=== PATIENT | female | born 1995 | race African-American/Black ===

== ENCOUNTER 2021-07-02 23:33 | Day surgery (SDC) | payer OTHER ==
[2021-07-02 23:39] VITALS: BMI 41.8
[2021-07-03] MEDS ORDERED: hydrALAZINE 20 MG/ML VIAL SLOW IVP PRN (00:33)
== END 2021-07-03 02:40 | disposition home or self-care (01) ==
LOC: CSHLD/OP 23:33
PROVIDERS: ATTEND Obstetrics & Gynecology
DX: O47.03 False labor before 37 completed weeks of gestation, third trimester (principal); O23.43 Unspecified infection of urinary tract in pregnancy, third trimester; N39.0 Urinary tract infection, site not specified; O23.593 Infection of other part of genital tract in pregnancy, third trimester; B96.89 Other specified bacterial agents as the cause of diseases classified elsewhere; O98.813 Other maternal infectious and parasitic diseases complicating pregnancy, third trimester; B37.9 Candidiasis, unspecified; Z3A.33 33 weeks gestation of pregnancy
CPT/HCPCS: 87480; 87510; 87660; 99284

== ENCOUNTER 2021-08-07 09:31 | Outpatient (CLI) | payer OTHER ==
[2021-08-07 23:17] LABS: SARS-CoV-2 PCR by NAA Not Detected (NotDetected)
== END 2021-08-07 09:32 | disposition home or self-care (01) ==
LOC: CSHLAB 09:31
PROVIDERS: ATTEND Family Medicine
DX: Z01.812 Encounter for preprocedural laboratory examination (principal); Z20.822 Contact with and (suspected) exposure to COVID-19
CPT/HCPCS: U0003; U0005

== ENCOUNTER 2021-08-10 10:12 | Inpatient (IN) | payer OTHER ==
[2021-08-10] MEDS ORDERED: Famotidine/PF 20 mg/2ml Vial SLOW IVP PRN (11:12)
[2021-08-10] MEDS ORDERED: Ondansetron PF 4 MG/2 ML Vial IVP PRN ×3 (11:12→16:32)
[2021-08-10] MEDS ORDERED: CEFAZOLIN 3 GM in Premix Bag 1 BAG IVPB SCH (11:12)
[2021-08-10] MEDS ORDERED: hydrALAZINE 20 MG/ML VIAL SLOW IVP PRN ×2 (11:12→16:32)
[2021-08-10] MEDS ORDERED: Bicitra 30 ML UDCUP PO PRN (11:12)
[2021-08-10] MEDS ORDERED: Promethazine HCl 25 MG/ML VIAL IM PRN ×3 (11:12→16:32)
[2021-08-10] MEDS ORDERED: Lactated Ringer's 1,000 ML IV SCH (11:12)
[2021-08-10 11:21] VITALS: BMI 42.0
[2021-08-10 11:32] LABS: Hemoglobin 9.4 g/dL (12.0-15.5); Mean Corpuscular HGB CONC 29.6 g/dL (32.0-36.0); Mean Corpuscular Hemoglobin 21.4 pg (27.0-33.0); Mean Corpuscular Volume 72.3 fl (81.6-98.3); Mean Platelet Volume 10.2 fl (7.4-10.4); Platelet Count 330 10x3/uL (150-450); RBC Distribution Width 17.2 % (11.5-14.5); White Blood Cell (WBC) Count 10.2 10x3/uL (3.5-10.5)
[2021-08-10] MEDS ORDERED: ePHEDrine Sulfate 50 MG/10 ML VIAL ONE (12:07)
[2021-08-10] MEDS ORDERED: Ketorolac Tromethamine 30 MG/ML VIAL ONE (12:07)
[2021-08-10] MEDS ORDERED: Oxytocin 10 UNITS/ML VIAL ONE ×2 (12:07→13:46)
[2021-08-10] MEDS ORDERED: Fentanyl 100 MCG/2 ML VIAL ONE (12:07)
[2021-08-10] MEDS ORDERED: Ondansetron PF 4 MG/2 ML Vial ONE (12:07)
[2021-08-10] MEDS ORDERED: Phenylephrine 40 MG/NS 250 ML 250 ML ONE (12:07)
[2021-08-10] MEDS ORDERED: PHENYLEPHRINE-NS 100 MCG/ML 10 ML SYRINGE ONE (12:07)
[2021-08-10] MEDS ORDERED: Morphine PF 10 MG/10 ML VIAL ONE (12:07)
[2021-08-10] MEDS ORDERED: Misoprostol 200 MCG TAB ONE (12:08)
[2021-08-10] MEDS ORDERED: Carboprost 250 MCG/ML AMP ONE (12:09)
[2021-08-10] MEDS ORDERED: Methylergonovine 0.2 MG/ML VIAL ONE (12:09)
[2021-08-10 12:10] LABS: Syphilis Antibody Nonreactive (Nonreactive); Syphilis Antibody Index 0.04 S/CO (<1.00 Non-Reactive)
[2021-08-10 12:11] LABS: Hep B Surf Ag Non-Reactive S/CO (NonReactive)
[2021-08-10] MEDS ORDERED: CEFAZOLIN 1 GM VIAL ONE (13:44)
[2021-08-10] MEDS ORDERED: Naloxone HCl 0.4 mg/ml Vial IVP PRN ×2 (14:03)
[2021-08-10] MEDS ORDERED: Promethazine HCl 25 MG SUPP PR PRN (14:03)
[2021-08-10] MEDS ORDERED: Hydrocerin (Eucerin) Cream 120 gm Jar TOP PRN (14:03)
[2021-08-10] MEDS ORDERED: Naloxone HCl 0.4 mg/ml Vial IV PRN (14:03)
[2021-08-10] MEDS ORDERED: diphenhydrAMINE 50 MG/ML VIAL IVP PRN (14:03)
[2021-08-10] MEDS ORDERED: Communication Order-Pharmacy FS SCH (14:15)
[2021-08-10 16:05] LABS: HBSAg Index 0.17 S/CO (0-0.99)
[2021-08-10] MEDS ORDERED: Simethicone Chewable 80 MG TAB PO PRN (16:32)
[2021-08-10] MEDS ORDERED: Bisacodyl 10 MG SUPP PR PRN (16:32)
[2021-08-10] MEDS ORDERED: diphenhydrAMINE 25 MG CAP PO PRN (16:32)
[2021-08-10] MEDS ORDERED: Boostrix 0.5 ML (Tdap) VIAL IM ONE (16:32)
[2021-08-10] MEDS ORDERED: NS w/ Oxytocin 30 units 500 ML IV SCH (16:32)
[2021-08-10] MEDS: Ketorolac Tromethamine 30 MG/ML VIAL IVP SCH (17:55)
[2021-08-10] MEDS ORDERED: Ketorolac Tromethamine 30 MG/ML VIAL IVP PRN (18:00)
[2021-08-10] MEDS: Ferrous Sulfate 325 MG TAB PO SCH (21:19)
[2021-08-10] MEDS: Docusate Calcium (SURFAK) 240 MG CAP PO SCH (21:19)
[2021-08-11] MEDS: Ketorolac Tromethamine 30 MG/ML VIAL IVP SCH ×2 (00:06→05:41)
[2021-08-11] MEDS ORDERED: Meperidine HCl/PF 25 MG/ML VIAL IM PRN (02:15)
[2021-08-11] MEDS: HYDROcodone/Acetaminophen 5/325 mg Tablet PO PRN ×3 (04:42→21:52)
[2021-08-11 05:25] LABS: Hemoglobin 9.6 g/dL (12.0-15.5); Mean Corpuscular HGB CONC 30.7 g/dL (32.0-36.0); Mean Corpuscular Hemoglobin 21.8 pg (27.0-33.0); Mean Corpuscular Volume 71.1 fl (81.6-98.3); Mean Platelet Volume 10.3 fl (7.4-10.4); Platelet Count 270 10x3/uL (150-450); RBC Distribution Width 17.1 % (11.5-14.5); White Blood Cell (WBC) Count 9.6 10x3/uL (3.5-10.5)
[2021-08-11] MEDS: Prenatal Vitamin 1 TAB PO SCH (08:07)
[2021-08-11] MEDS: Docusate Calcium (SURFAK) 240 MG CAP PO SCH ×2 (08:07→21:53)
[2021-08-11] MEDS: Ferrous Sulfate 325 MG TAB PO SCH ×2 (08:07→21:54)
[2021-08-11] MEDS: Ibuprofen 800 MG TAB PO SCH (21:53)
[2021-08-12] MEDS: HYDROcodone/Acetaminophen 5/325 mg Tablet PO PRN ×2 (05:07→13:36)
[2021-08-12] MEDS: Ibuprofen 800 MG TAB PO SCH ×3 (05:07→21:04)
[2021-08-12] MEDS: Docusate Calcium (SURFAK) 240 MG CAP PO SCH ×2 (08:29→21:03)
[2021-08-12] MEDS: Prenatal Vitamin 1 TAB PO SCH (08:29)
[2021-08-12] MEDS: Ferrous Sulfate 325 MG TAB PO SCH ×2 (08:29→21:04)
[2021-08-13] MEDS: Ibuprofen 800 MG TAB PO SCH (05:45)
[2021-08-13 07:46] VITALS: TEMP 98.2
[2021-08-13] MEDS: Prenatal Vitamin 1 TAB PO SCH (08:49)
[2021-08-13] MEDS: Docusate Calcium (SURFAK) 240 MG CAP PO SCH (08:49)
[2021-08-13] MEDS: Ferrous Sulfate 325 MG TAB PO SCH (08:49)
[2021-08-13 08:58] VITALS: BP 131/73
== END 2021-08-13 13:35 | disposition home or self-care (01) | DRG 788 ==
LOC: CSHLD 10:12 → CSHPP 16:00
PROVIDERS: ADMIT Family Medicine; ATTEND Family Medicine
PROC: 10D00Z1 Extraction of Products of Conception, Low, Open Approach (ICD-10-PCS; principal; 2021-08-10)
DX: O34.211 Maternal care for low transverse scar from previous cesarean delivery (principal); Z20.822 Contact with and (suspected) exposure to COVID-19; Z3A.39 39 weeks gestation of pregnancy; Z37.0 Single live birth; O99.02 Anemia complicating childbirth; D64.9 Anemia, unspecified
CPT/HCPCS: 36415; 51702; 85027; 86780; 86850; 86900; 86901; 87340; J0690; J1885; J2274; J2405; J2590; J3010; S0028

== ENCOUNTER 2025-08-09 10:13 | Day surgery (SDC) | payer OTHER ==
[2025-08-09 10:29] VITALS: BMI 44.6
[2025-08-09 15:46] LABS: #Basophils Less than 0.03 10x3/uL (0.0-0.2); #Eosinophils 0.03 10x3/uL (0.0-0.5); #Monocytes 0.63 10x3/uL (0.0-1.1); #Neutrophils 6.38 10x3/uL (1.5-8.4); %Basophils 0.2 % (0.0-2.0); %Eosinophils 0.3 % (0.0-6.0); %Lymphocytes 33.0 % (18.0-47.0); %Monocytes 5.9 % (0.0-10.0); %Neutrophils 60.2 % (40.0-75.0); Hematocrit 33.0 % (34.9-44.5); Hemoglobin 10.3 g/dL (12.0-15.5); Mean Corpuscular Hemoglobin 23.5 pg (27.0-33.0); Mean Corpuscular Volume 75.3 fL (81.6-98.3); Platelet Count 327 10x3/uL (150-450); Red Blood Cell (RBC) Count 4.38 10x6/uL (3.90-5.03); White Blood Cell (WBC) Count 10.60 10x3/uL (3.5-10.5)
[2025-08-09 15:59] LABS: Protein, Urine Random Quant 12.0 mg/dL (1-14)
[2025-08-09 16:21] LABS: ALT (SGPT) 7 U/L (Less than 34); AST (SGOT) 17 U/L (11-34); Albumin 2.7 g/dL (3.1-4.5); Alkaline Phosphatase 169 U/L (40-110); Anion Gap 14 mmol/L (10-20); BUN (Urea Nitrogen) 5 mg/dL (7.0-18.7); Bilirubin, Total 0.4 mg/dL (0.3-1.2); Calc. Creatinine Clearance 258 mL/min (70-130); Calcium 9.4 mg/dL (7.8-10.44); Carbon Dioxide 21 mmol/L (22-29); Chloride 106 mmol/L (98-107); Globulin 4.6 g/dL (2.4-3.5); Glucose 55 mg/dL (70-105); Potassium 3.7 mmol/L (3.5-5.1); Sodium 137 mmol/L (136-145)
== END 2025-08-09 17:03 | disposition home or self-care (01) ==
LOC: CSHLD/OP 10:13
PROVIDERS: ATTEND Family Medicine
DX: O13.3 Gestational [pregnancy-induced] hypertension without significant proteinuria, third trimester (principal); O99.213 Obesity complicating pregnancy, third trimester; E66.01 Morbid (severe) obesity due to excess calories; Z3A.36 36 weeks gestation of pregnancy
CPT/HCPCS: 76819; 80053; 82570; 84156; 85025; 99283

== ENCOUNTER 2025-08-13 05:27 | Inpatient (IN) | payer OTHER ==
[2025-08-13] MEDS ORDERED: Ondansetron PF 4 MG/2 ML Vial IVP PRN ×4 (05:53→11:38)
[2025-08-13] MEDS ORDERED: Diphenoxylate HCl/Atropine Tablet PO PRN (05:53)
[2025-08-13] MEDS ORDERED: Famotidine/PF 20 mg/2ml Vial SLOW IVP PRN (05:53)
[2025-08-13] MEDS ORDERED: Tranexamic Acid 1,000 MG/10 ML VIAL IVP PRN (05:53)
[2025-08-13] MEDS ORDERED: Carboprost 250 MCG/ML AMP IM PRN (05:53)
[2025-08-13] MEDS ORDERED: Methylergonovine 0.2 MG/ML VIAL IM PRN (05:53)
[2025-08-13] MEDS ORDERED: Bicitra 30 ML UDCUP PO PRN (05:53)
[2025-08-13] MEDS ORDERED: hydrALAZINE 20 MG/ML VIAL SLOW IVP PRN ×2 (05:53→11:38)
[2025-08-13] MEDS ORDERED: Oxytocin 30 units/NS 500 ML 500 ML IV SCH (06:00)
[2025-08-13 06:01] VITALS: BMI 44.9
[2025-08-13 06:29] LABS: Hematocrit 33.5 % (34.9-44.5); Hemoglobin 10.2 g/dL (12.0-15.5); Mean Corpuscular Hemoglobin 22.6 pg (27.0-33.0); Mean Corpuscular Volume 74.3 fL (81.6-98.3); Platelet Count 325 10x3/uL (150-450); Red Blood Cell (RBC) Count 4.51 10x6/uL (3.90-5.03); White Blood Cell (WBC) Count 10.04 10x3/uL (3.5-10.5)
[2025-08-13] MEDS ORDERED: CEFAZOLIN 3 GM, Admixture Fee 1 EACH in Sodium Chloride 0.9% 100 ML IVPB SCH (06:30)
[2025-08-13] MEDS ORDERED: Ketorolac Tromethamine 30 MG (1 mL) VIAL IVP PRN (06:55)
[2025-08-13] MEDS ORDERED: Meperidine HCl/PF 25 MG (1 mL) VIAL SLOW IVP PRN (06:55)
[2025-08-13] MEDS ORDERED: diphenhydrAMINE 50 MG/ML VIAL IVP PRN (06:55)
[2025-08-13] MEDS ORDERED: HYDROmorphone 0.5 MG/0.5 ML SYRINGE SLOW IVP PRN (06:55)
[2025-08-13 07:00] LABS: Syphilis Antibody Index 0.05 S/CO (<1.00 Non-Reactive)
[2025-08-13] MEDS ORDERED: Ketorolac Tromethamine 30 MG (1 mL) VIAL IVP SCH (07:00)
[2025-08-13] MEDS ORDERED: Communication Order-Pharmacy FS SCH (07:00)
[2025-08-13 07:01] LABS: Hep B Surf Ag - L&D Non-Reactive S/CO (NonReactive)
[2025-08-13] MEDS ORDERED: Lanolin Ointment 7 GM TUBE TOP PRN (11:38)
[2025-08-13] MEDS ORDERED: Bisacodyl 10 MG SUPP PR PRN (11:38)
[2025-08-13] MEDS: Erythromycin Base 0.5% Oint 1 GM TUBE ONE (11:59)
[2025-08-13] MEDS: Oxytocin 10 UNITS/ML VIAL ONE ×2 (11:59→12:00)
[2025-08-13] MEDS: PHENYLEPHRINE-NS 100 MCG/ML 10 ML SYRINGE ONE ×2 (11:59→12:00)
[2025-08-13] MEDS: CEFAZOLIN 2 GM VIAL ONE (12:00)
[2025-08-13] MEDS: Ferrous Sulfate 325 MG TAB PO SCH ×2 (12:28→21:44)
[2025-08-13] MEDS: Ketorolac Tromethamine 30 MG (1 mL) VIAL IVP SCH (15:23)
[2025-08-13] MEDS ORDERED: Meperidine HCl/PF 25 MG (1 mL) VIAL IM PRN (19:00)
[2025-08-13] MEDS ORDERED: HYDROcodone/Acetaminophen 5/325 mg Tablet PO PRN (19:00)
[2025-08-14] MEDS: diphenhydrAMINE 25 MG CAP PO PRN (00:56)
[2025-08-14 03:34] LABS: Hematocrit 28.3 % (34.9-44.5); Hemoglobin 8.6 g/dL (12.0-15.5); Mean Corpuscular Hemoglobin 23.0 pg (27.0-33.0); Mean Corpuscular Volume 75.7 fL (81.6-98.3); Platelet Count 254 10x3/uL (150-450); Red Blood Cell (RBC) Count 3.74 10x6/uL (3.90-5.03); White Blood Cell (WBC) Count 9.71 10x3/uL (3.5-10.5)
[2025-08-14] MEDS ORDERED: cloNIDine 0.1 MG TAB PO PRN (13:41)
[2025-08-14] MEDS: NIFEdipine XL 30 MG ER.TAB PO SCH (14:20)
[2025-08-14] MEDS: hydrALAZINE 20 MG/ML VIAL ONE (14:24)
[2025-08-14] MEDS: Ibuprofen 800 MG TAB PO SCH (14:28)
[2025-08-14] MEDS: HYDROcodone/Acetaminophen 5/325 mg Tablet PO PRN (16:29)
[2025-08-14] MEDS: Simethicone Chewable 80 MG TAB PO PRN (16:30)
[2025-08-15] MEDS: NIFEdipine XL 30 MG ER.TAB PO SCH (08:39)
[2025-08-15 15:38] VITALS: BP 134/72; TEMP 98.5
== END 2025-08-15 18:30 | disposition home or self-care (01) | DRG 787 ==
LOC: CSHLD 05:27 → CSHPED 11:10
PROVIDERS: ADMIT Family Medicine; ATTEND Family Medicine
PROC: 10D00Z1 Extraction of Products of Conception, Low, Open Approach (ICD-10-PCS; principal; 2025-08-13)
PROC: 3E03329 Introduction of Other Anti-infective into Peripheral Vein, Percutaneous Approach (ICD-10-PCS; 2025-08-13)
PROC: 4A1HXCZ Monitoring of Products of Conception, Cardiac Rate, External Approach (ICD-10-PCS; 2025-08-13)
DX: O13.4 Gestational [pregnancy-induced] hypertension without significant proteinuria, complicating childbirth (principal); D62 Acute posthemorrhagic anemia; O34.211 Maternal care for low transverse scar from previous cesarean delivery; Z3A.37 37 weeks gestation of pregnancy; Z37.0 Single live birth; O99.214 Obesity complicating childbirth; O90.81 Anemia of the puerperium
CPT/HCPCS: 36415; 51702; 84450; 85027; 86780; 86850; 86900; 86901; 87340; J0360; J1885; J2274; J2590